=== PATIENT | male | born 1940 | race Asian ===

== ENCOUNTER 2023-12-22 14:58 | Inpatient (IN) ==
[2023-12-22 16:41] LABS: ABS Eosinophils 0.1 10^3/uL (0.0-0.5); ABS Lymphocytes 0.6 10^3/uL (1.0-4.8); ABS Monocytes 0.7 10^3/uL (0.0-1.1); ABS Neutrophils 4.9 10^3/uL (1.5-7.6); Eosinophil % 0.9 %; Hematocrit 38.4 % (38-53); Hemoglobin 13.9 g/dL (13.2-16.3); Lymphocyte % 9.5 %; Mean Corpuscular Hemoglobin 33.1 pg (27-33); Mean Corpuscular Hgb Conc 36.2 g/dL (31-36); Mean Corpuscular Volume 91.3 fL (80-97); Mean Platelet Volume 5.5 fL (7.5-11.2); Platelet Count 389 10^3/uL (150-450); Red Blood Count 4.21 10^6/uL (4.06-5.63); Red Cell Distribution Width 13.5 % (12-17); White Blood Count 6.3 10^3/uL (3.6-10.2)
[2023-12-22 17:40] LABS: Albumin 4.1 g/dL (3.2-5.2); Albumin/Globulin Ratio 1.5 (1-3); Calcium 8.5 mg/dL (8.6-10.3); Creatinine, Serum 0.64 mg/dL (0.67-1.17); Globulin 2.7 g/dL (2-4); Potassium 4.1 mmol/L (3.5-5.0); Total Bilirubin 0.9 mg/dL (0.2-1.0); Total Protein 6.8 g/dL (6.4-8.9); eGFR CKD-EPI 92.8 (>60)
[2023-12-22] MEDS ORDERED: Dextrose 50% Syringe 50 ml 25 GM/50 ML SYRINGE IV PUSH PRN (18:21)
[2023-12-22 19:55] LABS: Calcium 8.6 mg/dL (8.6-10.3); Creatinine, Serum 0.61 mg/dL (0.67-1.17); eGFR CKD-EPI 94.1 (>60)
[2023-12-22 19:58] LABS: Urine Osmo 395 mOsm/kg (150-1150)
[2023-12-22] MEDS: Enoxaparin 40 MG/0.4 ML SYR SUBCUT SCH (21:20)
[2023-12-22 22:58] LABS: Anion Gap 11 mmol/L (2-16); Blood Urea Nitrogen 9 mg/dL (6-24); CO2 Carbon Dioxide 24 mmol/L (22-32); Calcium 8.3 mg/dL (8.6-10.3); Chloride 81 mmol/L (101-111); Creatinine, Serum 0.51 mg/dL (0.67-1.17); Glucose 150 mg/dL (70-100); Sodium 116 mmol/L (135-145); eGFR CKD-EPI 99.4 (>60)
[2023-12-22] MEDS: Brimonidine/Timolol 0.2%/0.5% OPTH(NF) SOL 5 ML BOTH EYES SCH (23:12)
[2023-12-22 23:17] LABS: Free T4 1.45 ng/dL (0.61-1.12); TSH Ultra Thyroid Stim Horm 2.42 mcIU/mL (0.34-5.60)
[2023-12-23 02:57] LABS: Potassium 3.8 mmol/L (3.5-5.0)
[2023-12-23 02:58] LABS: Calcium 8.1 mg/dL (8.6-10.3); Creatinine, Serum 0.72 mg/dL (0.67-1.17); eGFR CKD-EPI 89.5 (>60)
[2023-12-23 05:52] LABS: ABS Basophils 0.1 10^3/uL (0.0-0.1); ABS Eosinophils 0.1 10^3/uL (0.0-0.5); ABS Lymphocytes 0.6 10^3/uL (1.0-4.8); ABS Monocytes 0.9 10^3/uL (0.0-1.1); Eosinophil % 1.3 %; Hemoglobin 13.2 g/dL (13.2-16.3); Lymphocyte % 8.6 %; Mean Corpuscular Hemoglobin 32.6 pg (27-33); Mean Corpuscular Hgb Conc 35.5 g/dL (31-36); Mean Corpuscular Volume 91.6 fL (80-97); Mean Platelet Volume 5.5 fL (7.5-11.2); Platelet Count 353 10^3/uL (150-450); Red Blood Count 4.04 10^6/uL (4.06-5.63); Red Cell Distribution Width 13.3 % (12-17); White Blood Count 6.5 10^3/uL (3.6-10.2)
[2023-12-23 06:40] LABS: Calcium 8.3 mg/dL (8.6-10.3); Creatinine, Serum 0.59 mg/dL (0.67-1.17); Potassium 3.6 mmol/L (3.5-5.0); eGFR CKD-EPI 95.1 (>60)
[2023-12-23] MEDS: PAROXETINE HCL 37.5 MG PO SCH (08:52)
[2023-12-23] MEDS: Fluorometholone 0.1% OPTH.SUS 5 ML BTL BOTH EYES SCH (08:52)
[2023-12-23] MEDS: SitaGLIPtin 25mg TAB (NF) 25 MG TAB PO SCH (08:53)
[2023-12-23 15:18] LABS: Calcium 8.8 mg/dL (8.6-10.3); Creatinine, Serum 0.61 mg/dL (0.67-1.17); Potassium 4.2 mmol/L (3.5-5.0); eGFR CKD-EPI 94.1 (>60)
[2023-12-23] MEDS: Ure-Na 15 GM POWD.PACK PO ONE (15:40)
[2023-12-24 05:52] LABS: ABS Basophils 0.1 10^3/uL (0.0-0.1); ABS Eosinophils 0.2 10^3/uL (0.0-0.5); ABS Lymphocytes 0.7 10^3/uL (1.0-4.8); ABS Neutrophils 5.1 10^3/uL (1.5-7.6); ABS Nucleated RBC 0.01 10^3/ul; Eosinophil % 2.2 %; Hematocrit 38.5 % (38-53); Hemoglobin 13.6 g/dL (13.2-16.3); Lymphocyte % 9.6 %; Mean Corpuscular Hemoglobin 32.6 pg (27-33); Mean Corpuscular Hgb Conc 35.2 g/dL (31-36); Mean Corpuscular Volume 92.5 fL (80-97); Mean Platelet Volume 5.6 fL (7.5-11.2); Nucleated Red Blood Cells % 0.1 %/100WBC (0.0-0.8); Platelet Count 373 10^3/uL (150-450); Red Blood Count 4.15 10^6/uL (4.06-5.63); Red Cell Distribution Width 13.6 % (12-17)
[2023-12-24 06:08] LABS: Calcium 9.1 mg/dL (8.6-10.3); Creatinine, Serum 0.67 mg/dL (0.67-1.17); Potassium 4.2 mmol/L (3.5-5.0); eGFR CKD-EPI 91.5 (>60)
[2023-12-24] MEDS: Ure-Na 15 GM POWD.PACK PO ONE (11:27)
[2023-12-24] MEDS: hydrALAZINE 20 mg/ml 1 ML Vial IV IV SLOW PU PRN (18:25)
[2023-12-24 23:35] LABS: Calcium 9.3 mg/dL (8.6-10.3); Creatinine, Serum 1.07 mg/dL (0.67-1.17); Potassium 4.4 mmol/L (3.5-5.0)
[2023-12-25 06:35] LABS: Calcium 8.9 mg/dL (8.6-10.3); Creatinine, Serum 0.75 mg/dL (0.67-1.17); Potassium 4.2 mmol/L (3.5-5.0); eGFR CKD-EPI 88.4 (>60)
[2023-12-25 13:35] VITALS: BP 129/55
== END 2023-12-25 16:37 | disposition home or self-care (01) | DRG 645 ==
LOC: ED 14:58 → EDHOLD 18:04 → ICU 19:58 → MED 12-23 12:41
PROVIDERS: ADMIT Internal Medicine Critical Care Medicine; ATTEND Internal Medicine Critical Care Medicine